=== PATIENT | male | born 1960 | race Caucasian/White ===

== ENCOUNTER 2019-04-25 20:45 | Emergency (ER) | payer BC, OTHER ==
[~2019-04-25] VITALS: Ht 198.1 cm; Wt 95.3 kg
[~2019-04-25 20:45] MED LIST: DEPO-TESTO100 MG/1 M IM; DESMOPRESS10 MCG/0.2 NS; HUMAN GROWTH HORMONE; IBUPROFEN 600600 M1 PO; PENICILLIN V P500 MG PO; [UNRECOGNIZED DRUG - OTHER]
[2019-04-25 20:46] VITALS: BP 152/105
== END 2019-04-25 20:54 | disposition home or self-care (01) ==
LOC: ER 20:45
DX: S51.832A Puncture wound without foreign body of left forearm, initial encounter (principal); Z90.49 Acquired absence of other specified parts of digestive tract; X58.XXXA Exposure to other specified factors, initial encounter; Y93.89 Activity, other specified; Y92.89 Other specified places as the place of occurrence of the external cause; Y99.8 Other external cause status

== ENCOUNTER 2019-06-17 14:06 | Emergency (ER) | payer BC, OTHER ==
[~2019-06-17] VITALS: Ht 200.7 cm; Wt 81.7 kg
[2019-06-17 14:22] LABS: ABSOLUTE NEUTROPHILS 6.1 thou/uL (1.4-8.2); BASOPHILS 0.7 % (0.0-2.0); EOSINOPHILS 1.8 % (0.0-3.0); HEMATOCRIT 46.3 % (42.0-52.0); HEMOGLOBIN 16.1 gm/dL (14.0-18.0); LYMPHOCYTES 17.1 % (24.0-44.0); MCH 30.6 pg (26.0-34.0); MCHC 34.7 g/dL (28.0-37.0); MONOCYTES 8.6 % (1.0-8.0); PLATELET COUNT 296 thou/uL (150-400); POLYS 71.8 % (36.0-66.0); RBC 5.26 mil/uL (4.50-6.00); RDW 13.8 % (10.5-14.5); WBC 8.5 thou/uL (4.0-11.0)
[2019-06-17 14:30] LABS: ANION GAP 2 mmol/L (7-16); BUN 12 mg/dL (7-18); CALCIUM 9.3 mg/dL (8.5-10.1); CHLORIDE 88 mmol/L (98-107); CO2 30 mmol/L (21-32); CREATININE 0.7 mg/dL (0.7-1.3); GLUCOSE 112 mg/dL (74-106); POTASSIUM 3.5 mmol/L (3.5-5.1); SODIUM 120 mmol/L (136-145)
[2019-06-17 14:39] LABS: TROPONIN-I <0.06 ng/mL (<0.06)
[2019-06-17 17:22] VITALS: BP 148/106
--- NOTE | 2019-06-18 12:26 | EKG ---
[place] [address] [facility] [facility] [place] [address] ELECTROCARDIOGRAM REPORT Name: GARCIAGLO Wayne Room #: [facility] Sachin#: [id number] Admission: 06/17/19 Attend Phys: Discharge: 06/17/19 Date of : 56 Report #: [id number] THIS REPORT FOR: //name// [facility] ED Test Date: 2019-06-17 Test Time: 14:08:41 Pat Name: GLO GARCIA Department: Room: Gender: M Prepleater: : 1960 Requested By: Christian Rosario Order Number: [id number] MD: Maynor Navarro Measurements Intervals [place] Rate: 78 P: 79 ND: 177 QRS: 68 QRSD: 95 T: 65 QT: 388 QTc: 442 Interpretive Statements Sinus rhythm Biatrial enlargement Left ventricular hypertrophy No previous ECG available for comparison Electronically Signed On 06-18-2019 12:26:09 ROD FILLER by Maynor Navarro [email or web address] <ELECTRONICALLY SIGNED> By: Maynor Navarro MD 06/18/19 1226 1408 1408 Maynor Navarro MD /EPI
== END 2019-06-17 17:24 | disposition home or self-care (01) ==
LOC: ER 14:06
PROVIDERS: Emergency Medicine
DX: R07.89 Other chest pain (principal); E87.1 Hypo-osmolality and hyponatremia; Z98.890 Other specified postprocedural states; Z85.89 Personal history of malignant neoplasm of other organs and systems

== ENCOUNTER → 2020-12-29 | Outpatient (CLI) | payer OTHER | LOC: CAT 10:49 | PROVIDERS: ATTEND Family Medicine | DX: Z13.6 Encounter for screening for cardiovascular disorders (principal); I25.10 Atherosclerotic heart disease of native coronary artery without angina pectoris; E78.00 Pure hypercholesterolemia, unspecified ==

== ENCOUNTER 2021-04-11 09:20 | Emergency (ER) | payer OTHER ==
[~2021-04-11] VITALS: Ht 200.7 cm; Wt 81.7 kg
[2021-04-11 10:04] LABS: HEMATOCRIT 49.4 % (42.0-52.0); MCH 31.7 pg (26.0-34.0); MCHC 34.5 g/dL (28.0-37.0); MCV 91.9 fL (80.0-100.0); RBC 5.37 mil/uL (4.50-6.00); RDW 14.2 % (10.5-14.5); WBC 5.4 thou/uL (4.0-11.0)
[2021-04-11 10:15] LABS: CALCIUM 9.2 mg/dL (8.5-10.1); POTASSIUM 3.9 mmol/L (3.5-5.1)
[2021-04-11 10:17] LABS: INR 0.98; PROTIME 10.7 Seconds (10.5-12.1)
[2021-04-11 10:21] LABS: ALBUMIN 4.2 g/dL (3.4-5.0); TOTAL BILIRUBIN 1.2 mg/dL (0.2-1.0); TOTAL PROTEIN 7.7 g/dL (6.4-8.2)
[2021-04-11 11:32] VITALS: BP 142/86
--- NOTE | 2021-04-11 15:54 | EKG ---
[facility] [address] [place] [address] ELECTROCARDIOGRAM REPORT Name: GLO GARCIA BIANKA [id number] Admission: 04/11/21 Attend Phys: Discharge: 04/11/21 Date of : 56 Report #: [id number] [facility] ED Test Date: 2021-04-11 Test Time: 10:00:41 Pat Name: GLO GARCIA Department: Room: Gender: M Beekeeper: RAJEEV : 1960 Requested By: Alondra Larson Order Number: [id number] MD: Maxwell Grove Measurements Intervals [place] Rate: 68 P: 84 OR: 173 QRS: 67 QRSD: 93 T: 58 QT: 412 QTc: 439 Interpretive Statements Sinus rhythm Biatrial enlargement Left ventricular hypertrophy Baseline wander in lead(s) I Compared to ECG 06/17/2019 14:08:41 No significant changes Electronically Signed On 04-11-2021 15:53:58 CDT by Maxwell Grove [email or web address] <ELECTRONICALLY SIGNED> By: Maxwell Grove MD, [facility] 04/11/21 1553 1000 Brianda Grove MD, FACC /EPI
== END 2021-04-11 11:32 | disposition home or self-care (01) ==
LOC: ER 09:20
PROVIDERS: Student in an Organized Health Care Education/Training Program
DX: I63.9 Cerebral infarction, unspecified (principal); Z90.89 Acquired absence of other organs; Z79.1 Long term (current) use of non-steroidal anti-inflammatories (NSAID); Z79.899 Other long term (current) drug therapy

== ENCOUNTER 2021-04-19 16:58 | Emergency (ER) | payer OTHER ==
[~2021-04-19] VITALS: Ht 188 cm; Wt 79.4 kg
[2021-04-19 16:59] VITALS: BP 142/64
[2021-04-19] MEDS ORDERED: CEPHALEXIN500 MG PO (18:13)
== END 2021-04-19 19:03 | disposition home or self-care (01) ==
LOC: ER 16:58
DX: S81.812A Laceration without foreign body, left lower leg, initial encounter (principal); Z90.89 Acquired absence of other organs; Z79.1 Long term (current) use of non-steroidal anti-inflammatories (NSAID); Z79.899 Other long term (current) drug therapy; W25.XXXA Contact with sharp glass, initial encounter; Y93.89 Activity, other specified; Y92.89 Other specified places as the place of occurrence of the external cause; Y99.8 Other external cause status